=== PATIENT | male | born 1990 | race Caucasian/White ===

== ENCOUNTER 2017-01-24 09:18 | Emergency (ER) | payer OTHER ==
[~2017-01-24 09:18] MED LIST: BENADRYL PO; BENADRYL25 M3 PO; CLARITIN10 M3 DOB; ERYTHROMYCIN O3.5 GM OD; KEFLEX PO; MAGIC MOUTHWASH PO; MEDROL DOSEPAK4 MG PO; NO MEDICATIONS; NORCO1 TAB 10/3 PO; PREDNISONE PO
[2017-01-24 09:24] LABS: INFLUENZA A NEG (NEG); INFLUENZA B NEG (NEG)
[2017-01-24] MEDS ORDERED: ALBUTEROL17 GM (09:58)
[2017-01-24] MEDS ORDERED: BROMFED DM COU118 ML (09:59)
== END 2017-01-24 10:01 | disposition home or self-care (01) ==
LOC: SED 09:18
PROVIDERS: Emergency Medicine
DX: J20.9 Acute bronchitis, unspecified (principal); Z98.890 Other specified postprocedural states
CPT/HCPCS: 87804; 99282

== ENCOUNTER 2017-02-06 16:15 | Emergency (ER) | payer OTHER ==
[~2017-02-06 16:15] MED LIST changes: +ALBUTEROL17 GM; +BROMFED DM COU118 ML
== END 2017-02-06 17:22 | disposition home or self-care (01) ==
LOC: SED 16:15
DX: T78.40XA Allergy, unspecified, initial encounter (principal); W57.XXXA Bitten or stung by nonvenomous insect and other nonvenomous arthropods, initial encounter
CPT/HCPCS: 96372; 99283; J2930